=== PATIENT | female | born 1945 | race Hispanic/Latino ===

== ENCOUNTER 2021-09-25 11:59 | Observation (INO) | payer MEDICARE, OTHER ==
[~2021-09-25] VITALS: Ht 154.9 cm; Wt 50.8 kg
[2021-09-25 13:58] LABS: BASOPHILS # (AUTO) 0.1 (0.0-0.1); BASOPHILS % 0.6 % (0.0-1.0); EOSINOPHILS # (AUTO) 0.2 (0.0-0.4); EOSINOPHILS % 1.4 % (0.0-6.0); HEMATOCRIT 35.1 % (34.2-44.1); HEMOGLOBIN 11.9 g/dL (12.0-16.0); LYMPHOCYTES # (AUTO) 3.1 (1.0-3.2); LYMPHOCYTES % 28.5 % (18.0-39.1); MEAN CORPUSCULAR HGB CONC 33.9 g/dL (31-35); MEAN CORPUSCULAR VOLUME 85.4 fL (81-99); MONOCYTES # (AUTO) 0.8 (0.2-0.8); MONOCYTES % 7.2 % (4.4-11.3); NEUTROPHILS # (AUTO) 6.7 (2.1-6.9); NEUTROPHILS % 61.8 % (38.7-80.0); PLATELET COUNT 239 x10e3/uL (140-360); RED BLOOD COUNT 4.11 x10e6/uL (3.6-5.1); RED CELL DISTRIBUTION WIDTH 14.2 % (11.7-14.4)
[2021-09-25 14:19] LABS: ALBUMIN 4.4 g/dL (3.5-5.0); ANION GAP 15.3 mmol/L (8-16); CALCIUM 9.3 mg/dL (8.4-10.2); CREATININE, SERUM 0.77 mg/dL (0.57-1.11); POTASSIUM 3.3 mmol/L (3.5-5.1)
[2021-09-25] MEDS ORDERED: HYDRALAZINE HCL 20 MG/ML VIAL IV PRN (15:30)
[2021-09-25] MEDS ORDERED: CLONIDINE HCL 0.2 MG TAB PO ONE (15:45)
[2021-09-25] MEDS ORDERED: SODIUM CHLORIDE FLUSH 10 ML SYR INJ PRN (15:45)
[2021-09-25] MEDS ORDERED: ONDANSETRON HCL INJ 2MG/ML 2ML 2 MG/ML VIAL IV PRN (15:45)
[2021-09-25] MEDS ORDERED: IOPAMIDOL 370 MG/ML 100 ML INFUS..BTL INJ ONE (17:14)
[2021-09-25 17:30] VITALS: BP 125/52
[2021-09-25 20:00] VITALS: BP 110/53
[2021-09-25 20:24] LABS: CREATINE KINASE MB 1.1 ng/mL (0-5.0)
[2021-09-25 23:07] VITALS: BP 110/63
[2021-09-26] VITALS: BP 130/68
[2021-09-26 03:23] LABS: CREATINE KINASE 54 IU/L (29-168)
[2021-09-26 04:00] VITALS: BP 141/63
[2021-09-26 07:57] VITALS: BP 139/60
[2021-09-26 08:00] VITALS: BP 139/60
[2021-09-26 08:46] LABS: CREATINE KINASE 65 IU/L (29-168)
[2021-09-26] MEDS ORDERED: POTASSIUM CHLORIDE 10MEQ EA PO ONE (10:00)
== END 2021-09-26 12:25 | disposition home or self-care (01) ==
LOC: ER 12:12 → INTOOBSV 15:32 → ERHOLD 15:32 → MED/SURG3 17:00
PROVIDERS: ADMIT Internal Medicine; ATTEND Internal Medicine
DX: R07.9 Chest pain, unspecified (principal); I25.10 Atherosclerotic heart disease of native coronary artery without angina pectoris; Z95.1 Presence of aortocoronary bypass graft; R79.1 Abnormal coagulation profile; K20.90 Esophagitis, unspecified without bleeding; K21.9 Gastro-esophageal reflux disease without esophagitis; Z20.822 Contact with and (suspected) exposure to COVID-19
CPT/HCPCS: 36415; 36569; 71045 ×2; 71260; 80053; 82550 ×2; 82553 ×2; 83880; 84484 ×2; 85025; 85379; 93005; 93306; 99284; G0378 ×2; Q9967; U0002

== ENCOUNTER 2021-09-27 14:22 | Observation (INO) | payer MEDICARE, OTHER ==
[~2021-09-27] VITALS: Ht 154.9 cm; Wt 50.8 kg
[~2021-09-27 14:22] MED LIST: SODIUM CHLORIDE FLUSH 10 ML SYR IV PRN
[2021-09-27] MEDS ORDERED: ONDANSETRON HCL INJ 2MG/ML 2ML 2 MG/ML VIAL IV STA (14:43)
[2021-09-27] MEDS ORDERED: ASPIRIN 325 MG TAB PO ONE (14:45)
[2021-09-27 15:09] LABS: BASOPHILS % 0.2 % (0.0-1.0); EOSINOPHILS % 0.1 % (0.0-6.0); HEMATOCRIT 37.1 % (34.2-44.1); HEMOGLOBIN 12.2 g/dL (12.0-16.0); LYMPHOCYTES # (AUTO) 1.6 (1.0-3.2); LYMPHOCYTES % 8.5 % (18.0-39.1); MEAN CORPUSCULAR HEMOGLOBIN 28.6 pg (28-32); MEAN CORPUSCULAR HGB CONC 32.9 g/dL (31-35); MEAN CORPUSCULAR VOLUME 86.9 fL (81-99); MONOCYTES # (AUTO) 0.9 (0.2-0.8); MONOCYTES % 5.1 % (4.4-11.3); NEUTROPHILS # (AUTO) 15.8 (2.1-6.9); NEUTROPHILS % 85.8 % (38.7-80.0); PLATELET COUNT 272 x10e3/uL (140-360); RED BLOOD COUNT 4.27 x10e6/uL (3.6-5.1); RED CELL DISTRIBUTION WIDTH 14.1 % (11.7-14.4)
[2021-09-27 15:28] LABS: INR 0.92; PROTHROMBIN TIME 13.2 seconds (11.9-14.5)
[2021-09-27 15:29] LABS: PARTIAL THROMBOPLASTIN TIME 30.7 seconds (23.8-35.5)
[2021-09-27 15:33] LABS: ALANINE AMINOTRANSFERASE 19 IU/L (0-55); ALBUMIN 4.7 g/dL (3.5-5.0); ALBUMIN/GLOBULIN RATIO 1.1 (0.8-2.0); ALKALINE PHOSPHATASE 144 IU/L (40-150); ANION GAP 19.4 mmol/L (8-16); BLOOD UREA NITROGEN 20 mg/dL (7-26); BUN/CREATININE RATIO 17 (6-25); CALCIUM 9.8 mg/dL (8.4-10.2); CARBON DIOXIDE 20 mmol/L (22-29); CHLORIDE 103 mmol/L (98-107); CREATININE, SERUM 1.15 mg/dL (0.57-1.11); GLUCOSE 130 mg/dL (74-118); LIPASE 23 U/L (8-78); POTASSIUM 3.4 mmol/L (3.5-5.1); SODIUM 139 mmol/L (136-145)
[2021-09-27] MEDS ORDERED: ONDANSETRON HCL INJ 2MG/ML 2ML 2 MG/ML VIAL IV PRN (16:45)
[2021-09-27] MEDS ORDERED: ASPIRIN 81 MG CHEW TAB PO ONE (16:45)
[2021-09-27 19:30] VITALS: BP 142/54
[2021-09-27 20:00] VITALS: BP 142/54
[2021-09-27 22:10] VITALS: BP 142/54
[2021-09-28] VITALS: BP 147/55
[2021-09-28 02:15] LABS: CREATINE KINASE MB 2.3 ng/mL (0-5.0)
[2021-09-28 02:16] VITALS: BP 147/55
[2021-09-28 04:00] VITALS: BP 144/65
[2021-09-28 07:53] VITALS: BP 146/59
[2021-09-28 08:33] VITALS: BP 146/59
[2021-09-28] MEDS ORDERED: METOPROLOL TARTRATE 25 MG TAB PO SCH (09:00)
[2021-09-28] MEDS ORDERED: POTASSIUM CHLORIDE 10MEQ EA PO ONE (09:00)
[2021-09-28] MEDS ORDERED: ASPIRIN 81 MG ENTERIC COATED PO SCH (09:00)
[2021-09-28] MEDS ORDERED: PAROXETINE HCL 20 MG TAB PO SCH (09:00)
[2021-09-28 09:49] LABS: CREATINE KINASE 109 IU/L (29-168)
[2021-09-28] MEDS ORDERED: ONDANSETRON HCL 4 MG ORAL DISINTEGRATING TAB PO PRN (11:15)
[2021-09-28] MEDS ORDERED: ATORVASTATIN 20 MG TAB PO SCH (21:00)
== END 2021-09-28 11:05 | disposition home or self-care (01) ==
LOC: ER 14:35 → ERHOLD 16:35 → MED/SURG 19:35
PROVIDERS: ADMIT Internal Medicine; ATTEND Internal Medicine
DX: F41.0 Panic disorder [episodic paroxysmal anxiety] (principal); I25.10 Atherosclerotic heart disease of native coronary artery without angina pectoris; Z95.1 Presence of aortocoronary bypass graft; E78.5 Hyperlipidemia, unspecified; R07.89 Other chest pain; E87.6 Hypokalemia; K44.9 Diaphragmatic hernia without obstruction or gangrene
CPT/HCPCS: 36415 ×2; 71045; 80053; 82550; 82553; 83690; 84484 ×2; 85025; 85610; 85730; 93005; 94799; 99284; G0378 ×2; J2405; U0002

== ENCOUNTER → 2022-01-23 | Outpatient (CLI) | payer MEDICARE, OTHER ==
[~2022-01-23] MED LIST changes: +REGADENOSON 0.4 MG/5 ML SYR IV ONE; -SODIUM CHLORIDE FLUSH 10 ML SYR IV PRN
== END ==
LOC: NM 07:07
PROVIDERS: ATTEND Internal Medicine Cardiovascular Disease
DX: I20.9 Angina pectoris, unspecified (principal); R06.02 Shortness of breath
CPT/HCPCS: 78452; 93017; A9502; J2785

== ENCOUNTER 2022-03-22 13:31 | Inpatient (IN) | payer MEDICARE, OTHER ==
[~2022-03-22] VITALS: Ht 154.9 cm; Wt 54.1 kg
[2022-03-22] MEDS ORDERED: ONDANSETRON HCL INJ 2MG/ML 2ML 2 MG/ML VIAL IV ONE (13:53)
[2022-03-22] MEDS ORDERED: SODIUM CHLORIDE 0.9% 1000ML 1,000 ML IV ONE (14:00)
[2022-03-22] MEDS ORDERED: Morphine 4mg INJECTION 4 MG/ML INJ IV ONE (14:00)
[2022-03-22 14:26] LABS: BASOPHILS % 0.2 % (0.0-1.0); EOSINOPHILS % 0.1 % (0.0-6.0); HEMATOCRIT 37.2 % (34.2-44.1); HEMOGLOBIN 11.4 g/dL (12.0-16.0); LYMPHOCYTES % 15.1 % (18.0-39.1); MEAN CORPUSCULAR HEMOGLOBIN 28.3 pg (28-32); MEAN CORPUSCULAR HGB CONC 30.6 g/dL (31-35); MEAN CORPUSCULAR VOLUME 92.3 fL (81-99); MONOCYTES # (AUTO) 0.9 (0.2-0.8); MONOCYTES % 6.5 % (4.4-11.3); NEUTROPHILS # (AUTO) 10.1 (2.1-6.9); NEUTROPHILS % 77.6 % (38.7-80.0); PLATELET COUNT 202 x10e3/uL (140-360); RED BLOOD COUNT 4.03 x10e6/uL (3.6-5.1); RED CELL DISTRIBUTION WIDTH 14.1 % (11.7-14.4)
[2022-03-22 14:45] LABS: ALBUMIN 4.8 g/dL (3.5-5.0); ALBUMIN/GLOBULIN RATIO 1.2 (0.8-2.0); ANION GAP 18.5 mmol/L (8-16); CALCIUM 10.3 mg/dL (8.4-10.2); CREATININE, SERUM 0.88 mg/dL (0.57-1.11); POTASSIUM 3.5 mmol/L (3.5-5.1)
[2022-03-22 15:15] LABS: CLARITY,URINE CLEAR (CLEAR); COLOR,URINE YELLOW (YELLOW); KETONES,URINE NEGATIVE (NEGATIVE); LEUKOCYTE ESTERASE ,URINE NEGATIVE (NEGATIVE); NITRITE,URINE NEGATIVE (NEGATIVE); PROTEIN,URINE DIPSTICK 2+ (NEGATIVE); URINE UROBILINOGEN 1 mg/dL (0.2 - 1)
[2022-03-22 15:35] LABS: BACTERIA,URINE MANY /HPF; EPITHELIAL CELLS,URINE FEW /LPF; RBC,URINE >50 /HPF (0-5); TRANSITIONAL EPI CELLS,URINE FEW
[2022-03-22 15:36] LABS: HYALINE CASTS 0-1 (0-1)
[2022-03-22 15:37] LABS: MUCUS,URINE FEW (RARE)
[2022-03-22] MEDS ORDERED: IOPAMIDOL 370 MG/ML 100 ML INFUS..BTL INJ ONE (15:45)
[2022-03-22] MEDS ORDERED: CEFTRIAXONE 1 GM VIAL IV ONE (16:30)
[2022-03-22] MEDS: SODIUM CHLORIDE 0.9% 1000ML 1,000 ML IV SCH (18:07)
[2022-03-22 20:00] VITALS: BP 159/61
[2022-03-22] MEDS: Morphine 2mg Syringe 2 MG/ML SYR IV PRN (22:56)
[2022-03-23] VITALS: BP 122/58
[2022-03-23] MEDS ORDERED: ULTRAM 50MG50 MG PO (03:43)
[2022-03-23] MEDS ORDERED: NAMENDA10 MG PO (04:00)
[2022-03-23] MEDS ORDERED: TRINTELLIX10 MG (04:00)
[2022-03-23] MEDS ORDERED: LEVOTHYROXINE50 MCG PO (04:00)
[2022-03-23] MEDS ORDERED: ARICEPT5 MG PO (04:00)
[2022-03-23] MEDS ORDERED: LOSARTAN POTAS100 MG PO (04:00)
[2022-03-23] MEDS ORDERED: NEURONTIN100 MG PO (04:00)
[2022-03-23] MEDS ORDERED: LIPITOR10 MG PO (04:00)
[2022-03-23] MEDS ORDERED: NEXIUM40 MG PO (04:00)
[2022-03-23] MEDS ORDERED: METOPROLOL SUCC25 MG PO (04:00)
[2022-03-23] MEDS ORDERED: AMLODIPINE BESY10 MG PO (04:00)
[2022-03-23 05:24] LABS: BASOPHILS % 0.4 % (0.0-1.0); EOSINOPHILS # (AUTO) 0.1 (0.0-0.4); EOSINOPHILS % 1.2 % (0.0-6.0); HEMATOCRIT 31.1 % (34.2-44.1); HEMOGLOBIN 10.1 g/dL (12.0-16.0); LYMPHOCYTES # (AUTO) 2.4 (1.0-3.2); LYMPHOCYTES % 26.5 % (18.0-39.1); MEAN CORPUSCULAR HEMOGLOBIN 28.4 pg (28-32); MEAN CORPUSCULAR HGB CONC 32.5 g/dL (31-35); MEAN CORPUSCULAR VOLUME 87.4 fL (81-99); MONOCYTES # (AUTO) 0.9 (0.2-0.8); MONOCYTES % 9.6 % (4.4-11.3); NEUTROPHILS # (AUTO) 5.7 (2.1-6.9); NEUTROPHILS % 61.8 % (38.7-80.0); PLATELET COUNT 216 x10e3/uL (140-360); RED BLOOD COUNT 3.56 x10e6/uL (3.6-5.1)
[2022-03-23 05:36] LABS: INR 1.03; PROTHROMBIN TIME 13.7 seconds (11.9-14.5)
[2022-03-23 05:37] LABS: PARTIAL THROMBOPLASTIN TIME 29.9 seconds (23.8-35.5)
[2022-03-23 05:49] LABS: ALBUMIN 3.8 g/dL (3.5-5.0); ALBUMIN/GLOBULIN RATIO 1.3 (0.8-2.0); ANION GAP 12.1 mmol/L (8-16); CREATININE, SERUM 0.76 mg/dL (0.57-1.11); POTASSIUM 3.1 mmol/L (3.5-5.1)
[2022-03-23] MEDS: SODIUM CHLORIDE 0.9% 1000ML 1,000 ML IV SCH ×3 (06:02→16:31)
[2022-03-23 08:18] VITALS: BP 136/60
[2022-03-23] MEDS: Morphine 2mg Syringe 2 MG/ML SYR IV PRN ×4 (08:20→21:01)
[2022-03-23] MEDS: ONDANSETRON HCL INJ 2MG/ML 2ML 2 MG/ML VIAL IV PRN ×4 (08:20→21:00)
[2022-03-23 08:49] VITALS: BP 136/60
[2022-03-23 11:25] VITALS: BP 139/54
[2022-03-23] MEDS ORDERED: POTASSIUM CHLORIDE 20MEQ/100ML 100 ML IV ONE (14:15)
[2022-03-23 15:26] VITALS: BP 146/51
[2022-03-23] MEDS ORDERED: BISACODYL 10 MG SUPP PR ONE (16:00)
[2022-03-23 21:04] VITALS: BP 141/53
[2022-03-24] VITALS (8 sets, daily range): BP systolic 108–149; BP diastolic 53–57
[2022-03-24] MEDS: SODIUM CHLORIDE 0.9% 1000ML 1,000 ML IV SCH ×3 (05:20→21:41)
[2022-03-24 07:01] LABS: ANION GAP 18.6 mmol/L (8-16); CREATININE, SERUM 0.76 mg/dL (0.57-1.11); POTASSIUM 3.6 mmol/L (3.5-5.1)
[2022-03-24] MEDS ORDERED: DEXTROSE 50% SYRINGE 50 ML IV ONE (07:45)
[2022-03-24 08:59] LABS: BASOPHILS # (AUTO) 0.1 (0.0-0.1); BASOPHILS % 0.8 % (0.0-1.0); EOSINOPHILS # (AUTO) 0.1 (0.0-0.4); EOSINOPHILS % 0.6 % (0.0-6.0); HEMATOCRIT 34.7 % (34.2-44.1); HEMOGLOBIN 11.1 g/dL (12.0-16.0); LYMPHOCYTES # (AUTO) 1.9 (1.0-3.2); LYMPHOCYTES % 17.2 % (18.0-39.1); MEAN CORPUSCULAR HEMOGLOBIN 28.9 pg (28-32); MEAN CORPUSCULAR VOLUME 90.4 fL (81-99); MONOCYTES # (AUTO) 0.6 (0.2-0.8); MONOCYTES % 5.6 % (4.4-11.3); NEUTROPHILS # (AUTO) 8.5 (2.1-6.9); NEUTROPHILS % 75.4 % (38.7-80.0); PLATELET COUNT 212 x10e3/uL (140-360); RED BLOOD COUNT 3.84 x10e6/uL (3.6-5.1); RED CELL DISTRIBUTION WIDTH 13.8 % (11.7-14.4)
[2022-03-24] MEDS: ONDANSETRON HCL INJ 2MG/ML 2ML 2 MG/ML VIAL IV PRN ×2 (09:19→14:10)
[2022-03-24] MEDS: Morphine 2mg Syringe 2 MG/ML SYR IV PRN ×3 (09:20→23:59)
[2022-03-24] MEDS ORDERED: MAGNESIUM SULF 1GRAM/DEXTROSE 100 ML IV ONE (12:30)
[2022-03-24] MEDS: BISACODYL 10 MG SUPP PR SCH (21:41)
[2022-03-25 00:05] VITALS: BP 164/64
[2022-03-25 04:00] VITALS: BP 164/64
[2022-03-25 08:00] VITALS: BP 146/55
[2022-03-25] MEDS: BISACODYL 10 MG SUPP PR SCH (09:30)
[2022-03-25] MEDS ORDERED: CEFUROXIME250 MG PO (12:05)
[2022-03-25 13:28] VITALS: BP 152/50
== END 2022-03-25 14:58 | disposition home or self-care (01) | DRG 389 ==
LOC: ER 13:42 → ERHOLD 16:36 → MED/SURG2 19:51 → OBSVTOIN 03-25 14:47
PROVIDERS: ADMIT Internal Medicine; ATTEND Internal Medicine
DX: K56.51 Intestinal adhesions [bands], with partial obstruction (principal); N39.0 Urinary tract infection, site not specified; K57.90 Diverticulosis of intestine, part unspecified, without perforation or abscess without bleeding; I25.10 Atherosclerotic heart disease of native coronary artery without angina pectoris; Z95.1 Presence of aortocoronary bypass graft; G30.9 Alzheimer's disease, unspecified; F02.80 Dementia in other diseases classified elsewhere, unspecified severity, without behavioral disturbance, psychotic disturbance, mood disturbance, and anxiety; I25.2 Old myocardial infarction; E03.9 Hypothyroidism, unspecified; E87.6 Hypokalemia; E16.2 Hypoglycemia, unspecified; E83.42 Hypomagnesemia; Z20.822 Contact with and (suspected) exposure to COVID-19
CPT/HCPCS: 0223U; 36415; 74018; 74022; 74177; 80048; 80053; 81001; 82948; 83690; 83735; 84484; 85025; 85610; 85730; 93005; 96361; 99284; G0378; J0696; J2270; J2405; J3475; J3480; J7030; J7799; Q9967